=== PATIENT | male | born 1960 | race Caucasian/White ===

== ENCOUNTER 2017-01-30 21:42 | Emergency (ER) | payer BC ==
[2017-01-30 21:43] VITALS: BMI 31.9
[2017-01-30 22:11] VITALS: BP 183/97; PULSE 69; RESP 16; TEMP 98.6; O2SAT 95
[2017-01-30] MEDS ORDERED: TDAP Vaccine 0.5 mL Syr IM ONE (22:18)
--- NOTE | 2017-01-30 22:22 | ED PDOC ---
Arrival/HPI - General Time Seen by Provider: 01/30/17 22:14 Historian: Patient - History of Present Illness Narrative History of Present Illness (Text): 01/30/17 22:18 Roger Perez is a 56 year old male who presents to the emergency department complaining of stepping on a shreyas nail on the ground about 3 hours ago. Patient states his last tetanus shot was many years ago. Patient denies any fever, chills, chest pain, shortness of breath, nausea, vomiting, diarrhea, urinary symptoms, back pain, neck pain, headache, dizziness, trauma/injury, suicidal/homicidal ideation or any other complaints. Time/Duration: 1-3 hours Symptom Onset: Sudden Symptom Course: Improving Activities at Onset: Light Context: Home Past Medical History - Provider Review Nursing Documentation Reviewed: Yes - Cardiac Hx Cardiac Disorders: Yes Hx Hypertension: Yes - Pulmonary Hx Respiratory Disorders: No - Neurological Hx Neurological Disorder: No - HEENT Hx HEENT Disorder: No - Renal Hx Renal Disorder: No - Endocrine/Metabolic Hx Endocrine Disorders: Yes Hx Diabetes Mellitus Type 2: Yes - Hematological/Oncological Hx Blood Disorders: No - Integumentary Hx Dermatological Disorder: No - Musculoskeletal/Rheumatological Hx Musculoskeletal Disorders: Yes Hx Fractures: Yes (lumbar fx) - Gastrointestinal Hx Gastrointestinal Disorders: No - Genitourinary/Gynecological Hx Genitourinary Disorders: No - Psychiatric Hx Psychophysiologic Disorder: No Hx Substance Use: No - Surgical History Hx Cardiac Catheterization: Yes Hx Tonsillectomy: Yes - Anesthesia Hx Anesthesia Reactions: No - Suicidal Assessment Feels Threatened In Home Enviroment: No Family/Social History - Physician Review Nursing Documentation Reviewed: Yes Family/Social History: No Known Family HX Smoking Status: Never Smoked Hx Alcohol Use: No Hx Substance Use: No Allergies/Home Meds Allergies/Adverse Reactions: Allergies No Known Allergies Allergy (Verified 05/01/14 10:54) Home Medications: Home Meds Medication Instructions Recorded Confirmed Losartan [Cozaar] 50 mg PO DAILY 04/01/15 01/30/17 Aspirin [Lo-Dose Aspirin EC] 81 mg PO DAILY 01/12/17 01/30/17 MetFORMIN [glucoPHAGE] 1,000 mg PO BID 01/12/17 01/30/17 Review of Systems - Physician Review All systems were reviewed & negative as marked: Yes - Review of Systems Constitutional: absent: Fevers, Night Sweats Eyes: absent: Vision Changes ENT: absent: Hearing Changes Respiratory: absent: SOB Cardiovascular: absent: Chest Pain Gastrointestinal: absent: Abdominal Pain Genitourinary Male: absent: Dysuria Musculoskeletal: absent: Arthralgias Skin: Other (Nail Puncture to bottom of left foot) Neurological: absent: Headache Endocrine: absent: Diaphoresis Hemo/Lymphatic: absent: Adenopathy Psychiatric: absent: Depression Physical Exam Vital Signs Temp Pulse Resp BP Pulse Ox 01/30/17 22:11 98.6 F 69 16 183/97 H 95 Temperature: Afebrile Blood Pressure: Hypertensive Pulse: Regular Respiratory Rate: Normal Appearance: Positive for: Well-Appearing, Non-Toxic, Comfortable Pain Distress: None Mental Status: Positive for: Alert and Oriented X 3 - Systems Exam Head: Present: Atraumatic, Normocephalic Pupils: Present: PERRL Extroacular Muscles: Present: EOMI Conjunctiva: Present: Normal Mouth: Present: Moist Mucous Membranes Neck: Present: Normal Range of Motion Respiratory/Chest: Present: Clear to Auscultation, Good Air Exchange. No: Respiratory Distress, Accessory Muscle Use Cardiovascular: Present: Regular Rate and Rhythm, Normal S1, S2. No: Murmurs Abdomen: Present: Normal Bowel Sounds. No: Tenderness, Distention, Peritoneal Signs Back: Present: Normal Inspection Upper Extremity: Present: Normal Inspection. No: Cyanosis, Edema Lower Extremity: Present: Neurovascularly Intact, Other (small puncture to planter surface of left foot; no palpable foreign body or discharge; no swelling noted/minimal erythema at puncture site ) Neurological: Present: GCS=15, CN II-XII Intact, Speech Normal Skin: Present: Warm, Dry, Normal Color. No: Rashes Psychiatric: Present: Alert, Oriented x 3, Normal Insight, Normal Concentration Medical Decision Making ED Course and Treatment: 01/30/17 22:24 Impression: 56 year old male complaining of stepping on a shreyas nail about 3 hours ago. Differential Diagnosis included but are not limited to: Puncture wound Plan: -- Left foot x-ray -- Keflex and Boostrix Vaccine -- Reassess and disposition Prior Visits: Notes and results from previous visits were reviewed. Patient last seen in the ED on 04/01/15 for 9 day duration of midsternal chest pain. Patient was admitted to hospitalist care for further evaluation. Progress Notes: 01/30/17 22:26 Patient's wound was cleansed with saline and Bacitracin applied. - RAD Interpretation Narrative RAD Interpretations (Text): 01/30/17 22:45 left Foot- no acute process Radiology Orders: 01/30/17 22:17 FOOT LEFT 3 VIEWS ROUTINE [RAD] Stat Car Mechanic: ED Physician - Medication Orders Current Medication Orders: Ibuprofen (Motrin Tab) 600 mg PO STAT STA Stop: 01/30/17 22:52 Discontinued Medications Cephalexin Monohydrate (Keflex) 500 mg PO ONCE STA PRN Reason: Protocol Stop: 01/30/17 22:18 Tetanus/Reduced Diphtheria/Acell Pertussis (Boostrix Vaccine Inj) 0.5 ml IM .ONCE ONE Stop: 01/30/17 22:19 - Scribe Statement The provider has reviewed the documentation as recorded by the Cabreraibchely Louis Provider Scribe Attestation: All medical record entries made by the Scribe were at my direction and personally dictated by me. I have reviewed the chart and agree that the record accurately reflects my personal performance of the history, physical exam, medical decision making, and the department course for this patient. I have also personally directed, reviewed, and agree with the discharge instructions and disposition. Disposition/Present on Arrival - Present on Arrival Any Indicators Present on Arrival: No History of DVT/PE: No History of Uncontrolled Diabetes: No Urinary Catheter: No History Surgical Site Infection Following: None - Disposition Have Diagnosis and Disposition been Completed?: Yes Diagnosis: Puncture wound of left foot Disposition: HOME/ ROUTINE Disposition Time: 22:47 Patient Plan: Discharge Patient Problems: Current Active Problems Problem Status Onset Puncture wound of left foot Acute Condition: GOOD Discharge Instructions (ExitCare): Puncture Wound (ED) Additional Instructions: Keep wound clean and dry/take meds as prescribed/follow up with your doctor this week/any signs of infection(wound discharge/swelling/increasing redness/ warmth/fever)return to the emergency room Prescriptions: Cephalexin [cephalexin] 500 mg PO BID #14 cap Referrals: Jennifer Darby MD [Primary Care Provider] - Follow up with primary
--- NOTE | 2017-01-31 10:46 | RAD ---
PROCEDURE: Left Foot Radiographs. HISTORY: stepped on a nail COMPARISON: None. FINDINGS: BONES: Normal. No fracture. JOINTS: Normal. SOFT TISSUES: Normal. OTHER FINDINGS: None. IMPRESSION: Normal left foot radiographs.
== END 2017-01-30 23:19 | disposition home or self-care (01) ==
LOC: ED 21:42
DX: S91.332A Puncture wound without foreign body, left foot, initial encounter (principal); W45.0XXA Nail entering through skin, initial encounter; E11.9 Type 2 diabetes mellitus without complications; I10 Essential (primary) hypertension; Z79.84 Long term (current) use of oral hypoglycemic drugs; Z79.82 Long term (current) use of aspirin; Z23 Encounter for immunization

== ENCOUNTER 2017-03-05 14:43 | Observation (INO) | payer BC ==
[2017-03-05 14:43] VITALS: BMI 31.9
[2017-03-05 16:14] LABS: URINE BILIRUBIN NEGATIVE (NEGATIVE); URINE BLOOD NEGATIVE (NEGATIVE); URINE GLUCOSE (UA) NEGATIVE (NEGATIVE); URINE KETONE TRACE mg/dL (NEGATIVE); URINE LEUKOCYTE ESTERASE NEGATIVE Leu/uL (NEGATIVE); URINE PROTEIN 30 mg/dL (<30 mg/dL); URINE UROBILINOGEN 0.2 E.U./dL (<1 E.U./dL)
[2017-03-05 16:18] LABS: URINE APPEARANCE CLEAR (CLEAR); URINE COLOR YELLOW (YELLOW)
[2017-03-05 16:19] LABS: URINE WBC 0 - 2 /hpf (0-6)
[2017-03-05 16:41] LABS: BASO # 0.12 K/mm3 (0.0-2.0); BASO % 1.6 % (0.0-3.0); EOS # 0.4 (0.0-0.7); EOS % 5.4 % (1.5-5.0); GRAN # 4.25 (1.4-6.5); GRAN % 56.5 % (50.0-68.0); HEMATOCRIT 41.6 % (42.0-52.0); LYMPH % 26.8 % (22.0-35.0); MEAN CELL VOLUME 87.9 fl (80.0-105.0); MEAN CORPUSCULAR HEMOGLOBIN 30.2 pg (25.0-35.0); MEAN CORPUSCULAR HGB CONC 34.4 g/dl (31.0-37.0); MEAN PLATELET VOLUME 11.2 fl (7.0-11.0); MONO # 0.7 (0.1-0.6); MONO % 9.7 % (1.0-6.0); RED CELL DISTRIBUTION WIDTH 12.9 % (11.5-14.5); WHITE BLOOD COUNT 7.5 10^3/ul (4.5-11.0)
--- NOTE | 2017-03-05 16:42 | ED PDOC ---
Arrival/HPI - General Chief Complaint: Chest Pain Time Seen by Provider: 03/05/17 15:20 Historian: Patient, Family - History of Present Illness Narrative History of Present Illness (Text): 03/05/17 16:31 Patient is a 57 yo male past medical history of diabetes, hypertension, presents to the ED stating that he has had intermittent chest pain for "past three days" "on and off" "while I was sitting". He also reports intermittent MILD left sided headache. Denies chest pain with exertion. Denies dsypnea with exertion. Denies numbness or weakness. Denies leg pain or swelling. Denies hemoptysis. Denies pleuritic pain. He does report that he "has been eating a little too much" for Thanksgiving but has been compliant with his medication. Denies neck pain or arm pain or back pain. Denies diaphoresis. Past Medical History - Cardiac Hx Cardiac Disorders: Yes Hx Hypertension: Yes - Pulmonary Hx Respiratory Disorders: No - Neurological Hx Neurological Disorder: No - HEENT Hx HEENT Disorder: No - Renal Hx Renal Disorder: No - Endocrine/Metabolic Hx Endocrine Disorders: Yes Hx Diabetes Mellitus Type 2: Yes - Hematological/Oncological Hx Blood Disorders: No - Integumentary Hx Dermatological Disorder: No - Musculoskeletal/Rheumatological Hx Musculoskeletal Disorders: Yes Hx Fractures: Yes (lumbar fx) - Gastrointestinal Hx Gastrointestinal Disorders: No - Genitourinary/Gynecological Hx Genitourinary Disorders: No - Psychiatric Hx Psychophysiologic Disorder: No Hx Substance Use: No - Surgical History Hx Cardiac Catheterization: Yes Hx Tonsillectomy: Yes - Anesthesia Hx Anesthesia Reactions: No - Suicidal Assessment Feels Threatened In Home Enviroment: No Family/Social History Family/Social History: CAD/NH Smoking Status: Never Smoked Hx Alcohol Use: No Hx Substance Use: No Allergies/Home Meds Allergies/Adverse Reactions: Allergies No Known Allergies Allergy (Verified 03/05/17 14:49) Home Medications: Home Meds Medication Instructions Recorded Confirmed Losartan [Cozaar] 50 mg PO DAILY 04/01/15 03/05/17 Aspirin [Lo-Dose Aspirin EC] 81 mg PO DAILY 01/12/17 03/05/17 MetFORMIN [glucoPHAGE] 1,000 mg PO BID 01/12/17 03/05/17 Review of Systems - Review of Systems Constitutional: Fatigue. absent: Fevers Eyes: absent: Vision Changes, Eye Pain ENT: absent: Hearing Changes Respiratory: absent: SOB, Cough, Sputum Cardiovascular: Chest Pain Gastrointestinal: absent: Abdominal Pain, Nausea, Vomiting Genitourinary Male: absent: Dysuria Musculoskeletal: absent: Back Pain Skin: absent: Rash Neurological: Headache, Dizziness. absent: Focal Weakness, Gait Changes Endocrine: absent: Diaphoresis, Polyuria, Polydipsia Hemo/Lymphatic: absent: Easy Bleeding Psychiatric: absent: Depression Physical Exam Vital Signs Reviewed: Yes Vital Signs Temp Pulse Resp BP Pulse Ox 03/05/17 18:14 54 L 18 188/92 H 97 03/05/17 16:44 60 17 173/87 H 98 03/05/17 16:07 69 170/95 H 03/05/17 14:48 97.4 F L 73 16 194/107 H 98 Temperature: Afebrile Blood Pressure: Hypertensive Appearance: Positive for: Well-Appearing Pain Distress: Mild Mental Status: Positive for: Alert and Oriented X 3 Finger Stick Blood Glucose: 123 - Systems Exam Head: Present: Atraumatic Pupils: Present: PERRL Extroacular Muscles: Present: EOMI Mouth: Present: Moist Mucous Membranes Pharnyx: No: ERYTHEMA Nose (Internal): Present: Normal Inspection Neck: Present: Normal Range of Motion. No: Meningeal Signs Respiratory/Chest: Present: Clear to Auscultation. No: Respiratory Distress Cardiovascular: Present: Regular Rate and Rhythm, Murmurs Abdomen: Present: Normal Bowel Sounds. No: Tenderness, Peritoneal Signs Back: No: CVA Tenderness Upper Extremity: No: Cyanosis Lower Extremity: No: Edema Neurological: Present: Motor Func Grossly Intact, Normal Sensory Function, Normal Cerebellar Funct Skin: Present: Warm Psychiatric: Present: Alert, Normal Insight, Normal Concentration Medical Decision Making ED Course and Treatment: 03/05/17 17:20 Patient is a 57 yo male presents with intermittent chest pain, "at rest", as well as headache over past several days. Currently in ED he denies chest pain. EKG with no acute changes when compared to prior EKG. He is hypertensive, states he has been taking his BP meds but possibly with noncompliance with diet recently. On examination, no focal neuro deficits. Not thunderclap headache, not worst in life. No fever. No neck pain, no meningeal signs. CT head unremarkable. On re-exam the patient denies chest pain. He has had stress test earlier this year through Dr. Simon which was reportedly unremarkable. Last cardiac cath noted was 2014, and was reviewed. He has family hx of CAD (father). Patient, given risk factors for heart disease, will be admitted to telemetry observation for chest pain evaluation, BP management. Will review with oncall physician, consult his binder caser Dr. Simon as well. ASA and beta abdirashid ordered. Continue to deny chest pain or sob while in ED. Oral potassium replacement ordered. Treatment plan reviewed with patient and family. Case discussed with Dr. Scott, on-call physician, who accepts admission, case also reviewed with Dr. Glover as well. - Lab Interpretations Lab Results: 03/05/17 16:25 03/05/17 16:25 Lab Results 03/05/17 16:25: Sodium 140, Potassium 3.2 L, Chloride 100, Carbon Dioxide 31, Anion Gap 12, BUN 17, Creatinine 1.0, Est GFR ( Amer) > 60, Est GFR (Non- Af Amer) > 60, Random Glucose 123 H, Calcium 9.3, Magnesium 1.7, Total Bilirubin 0.6, AST 21, ALT 36, Alkaline Phosphatase 61, Lactate Dehydrogenase 331 L, Total Creatine Kinase 62, Troponin I 0.01 D, NT-Pro-B Natriuret Pep 239 , Total Protein 7.3, Albumin 4.0, Globulin 3.2, Albumin/Globulin Ratio 1.3 03/05/17 16:25: PT 10.9, INR 1.00, APTT 30.2 03/05/17 16:25: WBC 7.5 D, RBC 4.73, Hgb 14.3, Hct 41.6 L, MCV 87.9, MCH 30.2, MCHC 34.4, RDW 12.9, Plt Count 185, MPV 11.2 H, Gran % 56.5, Lymph % (Auto) 26.8 , [place] % (Auto) 9.7 H, Eos % (Auto) 5.4 H, Baso % (Auto) 1.6, Gran # 4.25, Lymph # 2.0, [place] # 0.7 H, Eos # 0.4, Baso # 0.12 03/05/17 15:37: Urine Color Yellow, Urine Appearance Clear, Urine pH 6.0, Ur Specific [place] 1.025, Urine Protein 30 H, Urine Glucose (UA) Negative, Urine Ketones Trace H, Urine Blood Negative, Urine Nitrate Negative, Urine Bilirubin Negative, Urine Urobilinogen 0.2, Ur Leukocyte Esterase Negative, Urine RBC 0 - 2, Urine WBC 0 - 2, Ur Epithelial Cells 0 - 2, Amorphous Sediment Transformation Manager - RAD Interpretation Radiology Orders: 03/05/17 15:32 HEAD W/O CONTRAST [CT] Stat 03/05/17 15:33 CHEST PORTABLE [RAD] Stat - Medication Orders Current Medication Orders: Aspirin (Ecotrin) 81 mg PO DAILY ELIAS Insulin Human Regular (Humulin R Low) 0 units SC ACHS ELIAS PRN Reason: Protocol Losartan Potassium (Cozaar) 50 mg PO DAILY ELIAS Discontinued Medications Acetaminophen (Tylenol 325mg Tab) 650 mg PO ONCE STA Stop: 03/05/17 17:53 Last Admin: 03/05/17 18:04 Dose: 650 mg Aspirin (Aspirin Chewable) 81 mg PO STAT STA Stop: 03/05/17 15:48 Last Admin: 03/05/17 15:57 Dose: 81 mg Metoprolol Tartrate (Lopressor) 25 mg PO STAT STA Stop: 03/05/17 15:59 Last Admin: 03/05/17 16:07 Dose: 25 mg MAR Pulse and Blood Pressure Document 03/05/17 16:07 (Rec: 03/05/17 16:07 [id number]) Pulse Pulse Rate (60-90) 69 Blood Pressure Blood Pressure (100/60-150/90) 170/95 Nitroglycerin (Nitro-Bid 2% Oint) 1 ea TOP ONCE STA Stop: 03/05/17 17:53 Last Admin: 03/05/17 18:04 Dose: 1 ea Potassium Chloride (K-Dur 20 Meq Er Tab) 40 meq PO STAT STA Stop: 03/05/17 16:48 Last Admin: 03/05/17 17:46 Dose: 40 meq Disposition/Present on Arrival - Present on Arrival Any Indicators Present on Arrival: No History of DVT/PE: No History of Uncontrolled Diabetes: No Urinary Catheter: No History of Decub. Ulcer: No History Surgical Site Infection Following: None - Disposition Have Diagnosis and Disposition been Completed?: Yes Diagnosis: Chest pain, Headache, Hypertension Disposition: HOSPITALIZED Disposition Time: 17:24 Patient Plan: Admission, Observation, Telemetry Patient Problems: Current Active Problems Problem Status Onset Chest pain Acute Headache Acute Hypertension Acute Condition: FAIR
[2017-03-05 16:45] LABS: ALB/GLOB RATIO 1.3 (1.1-1.8); ALKALINE PHOSPHATASE 61 U/L (38-126); ALT/SGPT 36 U/L (7-56); AST/SGOT 21 U/L (17-59); BILIRUBIN,TOTAL 0.6 mg/dL (0.2-1.3); BLOOD UREA NITROGEN 17 mg/dL (7-21); CALCIUM 9.3 mg/dL (8.4-10.5); CARBON DIOXIDE 31 mmol/L (21-33); CHLORIDE 100 mmol/L (98-107); GFR AFRICAN-AMERICAN > 60; GLUCOSE,RANDOM 123 mg/dL (70-110); MAGNESIUM 1.7 mg/dL (1.7-2.2); PARTIAL THROMBOPLASTIN TIME 30.2 Seconds (25.1-36.5); POTASSIUM 3.2 mmol/L (3.6-5.0); SODIUM 140 mmol/L (132-148); TOTAL PROTEIN 7.3 g/dL (5.8-8.3)
[2017-03-05] MEDS ORDERED: Potassium Chloride 20 mEq ER Tab PO STA (16:47)
--- NOTE | 2017-03-05 16:57 | CT ---
PROCEDURE: CT HEAD WITHOUT CONTRAST. HISTORY: headache, hypertension COMPARISON: None available. TECHNIQUE: Axial computed tomography images were obtained through the head/brain without intravenous contrast. Radiation dose: Total exam DLP = 726 mGy-cm. This CT exam was performed using one or more of the following dose reduction techniques: Automated exposure control, adjustment of the mA and/or kV according to patient size, and/or use of iterative reconstruction technique. FINDINGS: HEMORRHAGE: No intracranial hemorrhage. BRAIN: No mass effect or edema. No atrophy or chronic microvascular ischemic changes. VENTRICLES: Unremarkable. No hydrocephalus. CALVARIUM: Unremarkable. PARANASAL SINUSES: Unremarkable as visualized. No significant inflammatory changes. MASTOID AIR CELLS: Unremarkable as visualized. No inflammatory changes. OTHER FINDINGS: None. IMPRESSION: No acute intracranial findings
[2017-03-05 17:00] LABS: URINE EPITHELIAL CELLS 0 - 2 /hpf (0-5)
--- NOTE | 2017-03-05 17:03 | RAD ---
HISTORY: chest pain COMPARISON: No prior. FINDINGS: LUNGS: No active pulmonary disease. PLEURA: No significant pleural effusion identified, no pneumothorax apparent. CARDIOVASCULAR: Mild cardiomegaly OSSEOUS STRUCTURES: No significant abnormalities. VISUALIZED UPPER ABDOMEN: Normal. OTHER FINDINGS: None. IMPRESSION: No active disease.
[2017-03-05 17:05] LABS: URINE RBC 0 - 2 /hpf (0-2)
[2017-03-05 17:07] LABS: TROPONIN I 0.01 ng/mL
[2017-03-05] MEDS ORDERED: Nitroglycerin 2% Ointment Foilpak UD TOP STA (17:52)
[2017-03-05 20:02] LABS: TROPONIN I 0.01 ng/mL
--- NOTE | 2017-03-05 20:46 | CP.PCM.HP ---
History of Present Illness - History of Present Illness History of Present Illness: (covering for Dr. Scott) 57 year old male with history of hypertension, and diabetes presents to the Emergency Room with chest pain on and off for the past 3 days. He denies shortness of breath, nausea, diaphoresis , or leg swelling. He says the pain comes and goes. His energy sales consultant is Dr. Simon and according to the patient , he had a stress test earlier this year which was negative. Present on Admission - Present on Admission Any Indicators Present on Admission: No History of DVT/PE: No History of Uncontrolled Diabetes: No Urinary Catheter: No Decubitus Ulcer Present: No Review of Systems - Constitutional Constitutional: absent: Chills, Fatigue, Fever - Cardiovascular Cardiovascular: As Per HPI - Respiratory Respiratory: absent: Cough, Dyspnea, Wheezing - Gastrointestinal Gastrointestinal: absent: Abdominal Pain, Nausea, Vomiting Past Patient History - Past Medical History & Family History Past Medical History?: Yes - Past Social History Smoking Status: Never Smoked - CARDIAC Hx Cardiac Disorders: Yes Hx Hypertension: Yes - PULMONARY Hx Respiratory Disorders: No - NEUROLOGICAL Hx Neurological Disorder: No - HEENT Hx HEENT Problems: No - RENAL Hx Chronic Kidney Disease: No - ENDOCRINE/METABOLIC Hx Endocrine Disorders: Yes Hx Diabetes Mellitus Type 2: Yes - HEMATOLOGICAL/ONCOLOGICAL Hx Blood Disorders: No - INTEGUMENTARY Hx Dermatological Problems: No - MUSCULOSKELETAL/RHEUMATOLOGICAL Hx Musculoskeletal Disorders: Yes Hx Fractures: Yes (lumbar fx) - GASTROINTESTINAL Hx Gastrointestinal Disorders: No - GENITOURINARY/GYNECOLOGICAL Hx Genitourinary Disorders: No - PSYCHIATRIC Hx Psychophysiologic Disorder: No Hx Substance Use: No - SURGICAL HISTORY Hx Cardiac Catheterization: Yes Hx Tonsillectomy: Yes - ANESTHESIA Hx Anesthesia Reactions: No Meds Allergies/Adverse Reactions: Allergies Allergy/AdvReac Type Severity Reaction Status Date / Time No Known Allergies Allergy Verified 03/05/17 14:49 Physical Exam - Constitutional Appears: No Acute Distress - Head Exam Head Exam: ATRAUMATIC, NORMOCEPHALIC - Respiratory Exam Respiratory Exam: Clear to Auscultation Bilateral, NORMAL BREATHING PATTERN - Cardiovascular Exam Cardiovascular Exam: +S1, +S2 - GI/Abdominal Exam GI & Abdominal Exam: Normal Bowel Sounds, Soft. absent: Tenderness - Extremities Exam Extremities exam: Positive for: normal inspection Results - Vital Signs Recent Vital Signs: Last Vital Signs Temp 97.4 F L 03/05/17 14:48 Pulse 66 03/05/17 18:40 Resp 18 03/05/17 18:40 BP 175/95 H 03/05/17 18:40 Pulse Ox 98 03/05/17 18:40 - Labs Result Diagrams: 03/05/17 16:25 03/05/17 16:25 Labs: Laboratory Results - last 24 hr 03/05/17 03/05/17 18:29 19:30 POC Glucose (mg/dL) 122 H Lactate Dehydrogenase 315 L Total Creatine Kinase 54 Troponin I 0.01 Assessment & Plan - Assessment and Plan (Free Text) Assessment: Chest pain HTN Diabetes Hypokalemia Plan: Patient complaining of intermittent chest pain. Patient will be evaluated by Dr. Simon, who is his energy sales consultant. Cardiac enzymes and troponin X 3 has been ordered. continue ASA and Losartan for blood pressure. We will hold the metformin in case patient needs to undergo catheterization. We will order accuchecks with sliding scale coverage. Low potassium has been replaced. Repeat electrolytes in AM.
[2017-03-05] MEDS: Insulin Reg-LOW-Coverage SC SCH (22:17)
[2017-03-05] MEDS ORDERED: Pneumococcal 23-Valent Vaccine IM ONE (22:41)
[2017-03-05] MEDS ORDERED: Influenza Vaccine 60 mcg/0.5 mL SYR (4YR UP) IM ONE (22:41)
[2017-03-06 07:15] LABS: BASO # 0.15 K/mm3 (0.0-2.0); BASO % 1.9 % (0.0-3.0); EOS # 0.5 (0.0-0.7); EOS % 6.3 % (1.5-5.0); GRAN # 4.19 (1.4-6.5); GRAN % 53.4 % (50.0-68.0); HEMATOCRIT 42.5 % (42.0-52.0); LYMPH # 2.2 (1.2-3.4); LYMPH % 28.6 % (22.0-35.0); MEAN CELL VOLUME 88.4 fl (80.0-105.0); MEAN CORPUSCULAR HEMOGLOBIN 29.7 pg (25.0-35.0); MEAN CORPUSCULAR HGB CONC 33.6 g/dl (31.0-37.0); MEAN PLATELET VOLUME 11.9 fl (7.0-11.0); MONO # 0.8 (0.1-0.6); MONO % 9.8 % (1.0-6.0); RED CELL DISTRIBUTION WIDTH 13.2 % (11.5-14.5); WHITE BLOOD COUNT 7.8 10^3/ul (4.5-11.0)
[2017-03-06 07:52] LABS: BLOOD UREA NITROGEN 15 mg/dL (7-21); CALCIUM 8.9 mg/dL (8.4-10.5); CARBON DIOXIDE 30 mmol/L (21-33); CHLORIDE 103 mmol/L (98-107); GFR AFRICAN-AMERICAN > 60; GLUCOSE,RANDOM 132 mg/dL (70-110); POTASSIUM 3.3 mmol/L (3.6-5.0); SODIUM 141 mmol/L (132-148)
[2017-03-06] MEDS ORDERED: Potassium Chloride 20 mEq ER Tab PO ONE (08:26)
[2017-03-06] MEDS ORDERED: Apap-Butalbital-Caffeine 325-50-40mg Tab PO PRN (08:32)
--- NOTE | 2017-03-06 08:32 | CP.PCM.PN ---
Subjective - Date & Time of Evaluation Date of Evaluation: 03/06/17 Time of Evaluation: 08:15 - Subjective Subjective: (covering for Dr. Scott) Patient is seen this morning. He denies chest pain this morning. He does complain of a mild headache. Objective - Vital Signs/Intake and Output Vital Signs (last 24 hours): Temp Pulse Resp BP Pulse Ox 98.1 F 51 L 20 158/79 H 95 03/06/17 06:00 03/06/17 06:00 03/06/17 06:00 03/06/17 06:40 03/06/17 06:00 Intake and Output: 03/06/17 03/06/17 06:59 18:59 Intake Total 120 Balance 120 - Medications Medications: Current Medications Aspirin (Ecotrin) 81 mg PO DAILY [facility] Insulin Human Regular (Humulin R Low) 0 units SC ACHS EL[facility] PRN Reason: Protocol Last Admin: 03/05/17 22:17 Dose: Not Given Losartan Potassium (Cozaar) 50 mg PO DAILY [facility] - Labs Labs: 03/06/17 07:04 03/06/17 07:04 PT 10.9 SECONDS (9.4-12.5) 03/05/17 16:25 INR 1.00 (0.93-1.08) 03/05/17 16:25 APTT 30.2 Seconds (25.1-36.5) 03/05/17 16:25 - Constitutional Appears: No Acute Distress - Head Exam Head Exam: ATRAUMATIC, NORMOCEPHALIC - Respiratory Exam Respiratory Exam: Clear to Ausculation Bilateral, NORMAL BREATHING PATTERN - Cardiovascular Exam Cardiovascular Exam: +S1, +S2 - GI/Abdominal Exam GI & Abdominal Exam: Soft, Normal Bowel Sounds. absent: Tenderness - Extremities Exam Extremities Exam: Normal Inspection - Neurological Exam Neurological Exam: Alert, Awake, Oriented x3 Assessment and Plan - Assessment and Plan (Free Text) Assessment: Chest pain r/o ACS HTN Headache Hypokalemia Plan: Patient is feeling better this morning. He denies chest pain. He says he had cardiac catheterization by Dr. Simon 2 years ago. continue ASA, Losartan. Patient not on beta-abdirashid secondary to bradycardia. Awaiting cardiac evaluation. Metformin is held in case patient needs cardiac catheterization. 2 sets of cardiac enzymes and troponin negative. continue accuchecks with SS coverage. We will order Fioricet for the headache.
--- NOTE | 2017-03-06 09:01 | CARD ---
APPROVED REPORT EKG Measurement Heart [id number] <Conclusion> Normal sinus rhythm Left axis deviation PRWP V 1 - 6. Possible anterior AR, old STTW changes c/w ischemia T waves now upright c/w ECG 04/01/15
[2017-03-06] MEDS: Insulin Reg-LOW-Coverage SC SCH ×4 (09:52→22:06)
[2017-03-06 14:22] LABS: CHOLESTEROL 151 mg/dL (130-200)
[2017-03-06 14:44] LABS: FREE T4 1.27 ng/dL (0.78-2.19); T4 8.1 ug/dL (5.5-11.0)
[2017-03-06 14:57] LABS: PROSTATE SPECIFIC ANTIGEN 1.1 ng/mL (0.00-2.5); THYROID STIMULATING HORMONE 3.81 mIU/mL (0.46-4.68)
[2017-03-06] MEDS: Potassium Chloride 20 mEq ER Tab PO SCH (15:27)
--- NOTE | 2017-03-06 15:38 | RAD ---
HISTORY: CHF COMPARISON: 03/05/2017 TECHNIQUE: Chest PA and lateral FINDINGS: LUNGS: No active pulmonary disease. PLEURA: No significant pleural effusion identified. No pneumothorax apparent. CARDIOVASCULAR: Normal. OSSEOUS STRUCTURES: No significant abnormalities. VISUALIZED UPPER ABDOMEN: Normal. OTHER FINDINGS: None. IMPRESSION: No active disease.
[2017-03-06 17:49] VITALS: RESP 20
--- NOTE | 2017-03-06 21:51 | CON ---
DATE: CARDIOLOGY CONSULTATION REASON FOR CONSULTATION: Chest pain and uncontrolled hypertension. HISTORY OF PRESENT ILLNESS: The patient is a 57-year-old male with history of hypertension and diabetes mellitus, history of chest pain in the past, underwent a Myoview stress test in 09/2016, which was reported to be negative. An echocardiographic study was also performed the same day on 09/30/2016, which was unremarkable study. The patient presented because of chest discomfort and uncontrolled hypertension as well as headache. The patient claims to have been compliant with medications and he had a followup with Dr. Colt Simon this coming April. SOCIAL HISTORY: The patient is nonsmoker. 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 REVIEW OF SYSTEMS: No fever or chills. No dizziness or syncope. The patient did report blurry vision to the nurse earlier this morning. MEDICATIONS: Cozaar 50 mg daily, aspirin 81 mg once a day, regular insulin coverage by Accu-Chek hours. PHYSICAL EXAMINATION: GENERAL: The patient is a middle-aged male, who is moderately obese, does not appear to be in acute distress. VITAL SIGNS: Blood pressure 116/104, heart rate 54, temperature 98, respirations 18. HEENT: Normocephalic. CHEST: Clear. HEART: S1 and S2 regular. ABDOMEN: Soft. EXTREMITIES: No edema. LABORATORY DATA: CBC; WBC 7.8, hemoglobin 14.3, hematocrit 42.5 and platelet count 196,000. SMA-7; sodium 141, potassium 3.3, chloride 103, CO2 of 30, glucose 132, BUN 15, creatinine 0.9. Troponin is 0.01. PTT, PT and INR are within normal limits. Chest x-ray; borderline cardiomegaly, mild CHF. Head CT scan without contrast; no acute intracranial findings. EKG reveals sinus rhythm. Poor R wave progression. Consider lateral ischemia. ASSESSMENT: 1. Chest pain, rule out myocardial infarction. 2. Uncontrolled hypertension. 3. Diabetes mellitus. RECOMMENDATIONS: Continue aspirin 81 mg once a day, Cozaar 50 mg once a day, start Coreg at 3.125 mg once a day, Lasix 40 mg intravenously daily with K-Dur at 40 mEq daily. Start Lipitor at 20 mg once a day. Obtain repeat 12-lead EKG and one more set of troponin. Chet Charlton MD Psychiatric # [id number]
[2017-03-07 06:06] VITALS: TEMP 98; O2SAT 96
[2017-03-07 06:46] LABS: BASO # 0.09 K/mm3 (0.0-2.0); BASO % 1.2 % (0.0-3.0); EOS # 0.4 (0.0-0.7); GRAN # 3.76 (1.4-6.5); GRAN % 51.7 % (50.0-68.0); LYMPH # 2.3 (1.2-3.4); LYMPH % 31.9 % (22.0-35.0); MEAN CELL VOLUME 88.9 fl (80.0-105.0); MEAN CORPUSCULAR HEMOGLOBIN 30.5 pg (25.0-35.0); MEAN CORPUSCULAR HGB CONC 34.3 g/dl (31.0-37.0); MONO # 0.7 (0.1-0.6); MONO % 9.2 % (1.0-6.0); RED CELL DISTRIBUTION WIDTH 13.3 % (11.5-14.5); WHITE BLOOD COUNT 7.3 10^3/ul (4.5-11.0)
[2017-03-07 06:47] LABS: ALB/GLOB RATIO 1.1 (1.1-1.8); ALKALINE PHOSPHATASE 64 U/L (38-126); ALT/SGPT 35 U/L (7-56); AST/SGOT 23 U/L (17-59); BILIRUBIN,DIRECT 0.5 mg/dL (0.0-0.4); BILIRUBIN,TOTAL 0.8 mg/dL (0.2-1.3); BLOOD UREA NITROGEN 19 mg/dL (7-21); CALCIUM 9.4 mg/dL (8.4-10.5); CARBON DIOXIDE 29 mmol/L (21-33); CHLORIDE 105 mmol/L (98-107); GFR AFRICAN-AMERICAN > 60; GLUCOSE,RANDOM 126 mg/dL (70-110); POTASSIUM 3.5 mmol/L (3.6-5.0); SODIUM 141 mmol/L (132-148); TOTAL PROTEIN 7.6 g/dL (5.8-8.3)
[2017-03-07] MEDS: Insulin Reg-LOW-Coverage SC SCH ×3 (07:39→17:52)
[2017-03-07] MEDS ORDERED: Ergocalciferol 50,000 Intl Units Cap PO SCH (09:00)
--- NOTE | 2017-03-07 09:08 | CP.PCM.PN ---
Subjective - Date & Time of Evaluation Date of Evaluation: 03/07/17 Time of Evaluation: 09:05 - Subjective Subjective: PGY-[address] Scott Pt states that no more CP during the hospital stay here. BP is the main complaint and that's what brings pt down. (+) ambulation, tolerating food. PURDY was controlled by meds and improves as BP improves Objective - Vital Signs/Intake and Output Vital Signs (last 24 hours): Temp Pulse Resp BP Pulse Ox 98 F 67 20 164/103 H 96 03/07/17 06:00 03/07/17 06:00 03/07/17 06:00 03/07/17 05:56 03/07/17 06:00 Intake and Output: 03/07/17 03/07/17 06:59 18:59 Intake Total 180 Output Total 0 Balance 180 - Medications Medications: Current Medications Acetaminophen/Butalbital/Caffeine (Fioricet) 1 tab PO Q6H PRN PRN Reason: Headache Last Admin: 03/06/17 09:51 Dose: 1 tab Aspirin (Ecotrin) 81 mg PO DAILY [facility] Last Admin: 03/06/17 09:51 Dose: 81 mg Atorvastatin Calcium (Lipitor) 20 mg PO DIN [facility] Last Admin: 03/06/17 17:23 Dose: 20 mg Carvedilol (Coreg) 3.125 mg PO BID [facility] Last Admin: 03/06/17 17:23 Dose: 3.125 mg Ergocalciferol (Drisdol 50,000 Intl Units Cap) 1 cap PO Q7D [facility] Furosemide (Lasix) 40 mg IVP DAILY [facility] Last Admin: 03/06/17 13:35 Dose: 40 mg Hydralazine HCl (Apresoline) 10 mg PO Q6H PRN PRN Reason: FOR SBP>=170MMHG&/OR DBP>=100 Last Admin: 03/07/17 05:56 Dose: 10 mg Hydrochlorothiazide (Microzide) 12.5 mg PO DAILY [facility] Insulin Human Regular (Humulin R Low) 0 units SC ACHS [facility] PRN Reason: Protocol Last Admin: 03/07/17 07:39 Dose: Not Given Losartan Potassium (Cozaar) 100 mg PO DAILY [facility] Last Admin: 03/06/17 15:27 Dose: 100 mg Potassium Chloride (K-Dur 20 Meq Er Tab) 40 meq PO DAILY [facility] Last Admin: 03/06/17 15:27 Dose: 40 meq Potassium Chloride (Potassium Chloride Oral Soln) 40 meq PO Q1H [facility] Stop: 03/07/17 10:01 - Labs Labs: 03/07/17 05:30 03/07/17 05:30 PT 10.9 SECONDS (9.4-12.5) 03/05/17 16:25 INR 1.00 (0.93-1.08) 03/05/17 16:25 APTT 30.2 Seconds (25.1-36.5) 03/05/17 16:25 - Constitutional Appears: No Acute Distress - Head Exam Head Exam: ATRAUMATIC, NORMAL INSPECTION, NORMOCEPHALIC - Eye Exam Eye Exam: EOMI, Normal appearance, PERRL. absent: Scleral icterus Pupil Exam: NORMAL ACCOMODATION - ENT Exam ENT Exam: Mucous Membranes Moist - Neck Exam Additional comments: supple - Respiratory Exam Respiratory Exam: Clear to Ausculation Bilateral. absent: Rales, Rhonchi, Wheezes - Cardiovascular Exam Cardiovascular Exam: REGULAR RHYTHM, +S1, +S2 - GI/Abdominal Exam GI & Abdominal Exam: Soft, Normal Bowel Sounds. absent: Firm, Guarding, Tenderness, Organomegaly - Extremities Exam Extremities Exam: absent: Calf Tenderness - Back Exam Back Exam: absent: CVA tenderness (L), CVA tenderness (R) - Neurological Exam Neurological Exam: Alert, Awake - Psychiatric Exam Psychiatric exam: Normal Affect, Normal Mood Assessment and Plan - Assessment and Plan (Free Text) Plan: 57M was admitted for CP and hypertensive urgency of 219/104. CP r/o ACS, likely atypical, resolved - Echocardiogram pending read Uncontrolled HTN, improved - Hydrochlorothiazide 25QD, Losartan 100, Coreg 3.124 BID DM, A1C 6.9 - diabetic education, diet counselging Discharge planning - pending cardiac clearance s/r/d/w Dr. Scott
[2017-03-07] MEDS: Potassium Chloride 20 mEq ER Tab PO SCH (09:35)
[2017-03-07] MEDS: Potassium Chloride 40 mEq/30 ml LIQ UD PO SCH ×2 (09:36→12:51)
--- NOTE | 2017-03-07 09:54 | CARD ---
APPROVED REPORT EKG Measurement Heart [id number] <Conclusion> Normal sinus rhythm Left axis deviation PRWP, possible anterior MD, old New ST changes V 2 - 6 c/w ischemia-Biphasic T waves V 3 - 6.
--- NOTE | 2017-03-07 14:51 | CARD ---
APPROVED REPORT EXAM: Two-dimensional and M-mode echocardiogram with Doppler and color Doppler. INDICATION Hypertension/HCVD Chest Pain 2D DIMENSIONS IVSd1.6 (0.7-1.1cm)LVDd4.6 (3.9-5.9cm) PWd1.3 (0.7-1.1cm)LVDs3.4 (2.5-4.0cm) FS (%) 26.1 %LVEF (%)51.3 (>50%) M-Mode DIMENSIONS Aortic Root4.00 (2.2-3.7cm)Aortic Cusp Exc.2.20 (1.5-2.0cm) Aortic Valve AoV Peak Yvbppwcr507.0cm/Kenneth Peak GR.4mmHg Mitral Valve MV E Edrjfjsj09.8cm/sMV A Cwrvvvgr97.0cm/sE/A ratio0.7 TDI Lateral E' Peak V7.21cm/sMedial E' Peak V3.70cm/sE/Lateral E'7.2 E/Medial E'14.0 Pulmonary Valve PV Peak Wguwppez56.0cm/sPV Peak Grad.3mmHg Tricuspid Valve TR Peak Gcllgrub674fs/sRAP [id number] Peak Gr.15mmHg IUPM11mfVp LEFT VENTRICLE The left ventricle is normal size. There is mild concentric left ventricular hypertrophy. Left ventricle systolic function is borderline. There is normal LV segmental wall motion. Transmitral Doppler flow pattern is Grade I-abnormal relaxation pattern. RIGHT VENTRICLE The right ventricle is normal size. There is normal right ventricular wall thickness. The right ventricular systolic function is normal. ATRIA The left atrium size is normal. The right atrium size is normal. AORTIC VALVE The aortic valve is normal in structure. There is trace aortic regurgitation. There is no aortic valvular stenosis. MITRAL VALVE The mitral valve is normal in structure. There is no mitral valve regurgitation noted. TRICUSPID VALVE The tricuspid valve is normal in structure. GREAT VESSELS The aortic root is mildly enlarged. PERICARDIAL EFFUSION There is no pericardial effusion. <Conclusion> The left ventricle is normal size. There is mild concentric left ventricular hypertrophy. Left ventricle systolic function is borderline. There is normal LV segmental wall motion. Transmitral Doppler flow pattern is Grade I-abnormal relaxation pattern. There is trace aortic regurgitation. The aortic root is mildly enlarged.
--- NOTE | 2017-03-07 16:05 | PN ---
FINAL PROGRESS NOTE & DISCHARGE SUMMARY DATE: 03/07/2017 LOCATION: The patient was seen lying in the bed in room 275, bed 1. SUBJECTIVE: The patient is comfortable. 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 PHYSICAL EXAMINATION: VITAL SIGNS: T-max is 98.2, heart rate 67 to 74, blood pressure 164/103, 143/81, 150/95, 154/92, 166/99, 189/103, 216/104, yesterday 117/99, 158/79, 169/92, respirations is 18 to 20, O2 saturation is 95% to 98%. HEENT: Head examination normocephalic, atraumatic. Examination shows pinkish pale conjunctivae, anicteric sclerae, no oropharyngeal lesion, no neck rigidity. CHEST: Examination shows kyphosis. LUNG: Examination shows no rales, crackles, or wheezing. CARDIOVASCULAR: S1 and S2, regular rhythm. Questionable soft systolic murmur in left sternal border, left second intercostal space. MUSCULOSKELETAL: Shows body mass index of 32.4. Gait examination not tested. ABDOMEN: Soft. Positive bowel sounds. GENITALIA: Male. RECTAL: Examination is deferred. EXTREMITIES: Shows no petechia. No calf tenderness. No Homans' sign. NEUROLOGIC: The patient is alert, awake, and oriented x3. He is able to move upper and lower extremities without assistance. DIAGNOSTIC DATA: On 03/07/2017, WBC 7.3, hemoglobin and hematocrit 15.1 and 44.0, platelet 213. Sodium 141, potassium 3.5, chloride 105, CO2 29, anion gap 11, BUN 19, creatinine 0.9, GFR greater than 60, glucose 126, calcium 9.4, magnesium 2.0. LFTs are normal. Troponin is negative. BNP 283. Vitamin B60-pbogvww 26. TSH 3.81, T4 8.1. PSA is 1.1, which is normal. Cholesterol is 115, LDL 79, HDL 29. Urinalysis; urine protein 30 and trace ketone. Chest x-ray PA and lateral was noted, negative for CHF and no active disease. CT head was noted, which was negative. EKG was noted, sinus rhythm. Left axis deviation. T-wave inversion, I, aVL in V5 and V6. EKG shows T-wave inversion, I, aVL. FINAL IMPRESSION AND PLAN & DISCHARGE DIAGNOSES: 1. Chest pain. 2. Questionable angina. 3. Uncontrolled accelerated hypertension with symptoms of headache. 4. Obesity with elevated body mass index. 5. Hypokalemia. 6. Type 2 diabetes mellitus with hyperglycemia. 7. History of hypovitaminosis D. 8. Decreased high density lipoprotein. 9. Ketonuria. 10. Dyslipidemia. 11. History of angioplasty and stent placement. 12. History of coronary artery disease. 13. History of hypertension. 14. History of tonsillectomy. 15. Left Ventricular Hypertrophy 16. LVEF 51% 17. Borderline LVEF and left ventricular systolic function. The patient's last cardiac catheterization for 03/2015 shows the patient has a cardiac catheterization with intimal irregularities of the LAD with 50% to 60% ostial stenosis of the first diagonal and intimal irregularities of the left circumflex with left ventricular ejection fraction of 60%. The patient was recommended medical therapy, not angioplasty. The patient's past medical history is also significant for rectal polyp status post colonoscopy in 01/2017. History of hyperplastic rectal polyp. PLAN: At this time, the patient has been ordered repeat labs. The patient is awaiting Cardiology evaluation. CURRENT DISCHARGE MEDICATIONS: The patient is on; 1. Hydralazine 10 mg p.o. q. 6 h. p.r.n. for systolic blood pressure greater than 170 and diastolic greater than 100. 2. The patient is on Coreg 3.125 mg twice a day. 3. Cozaar 100 mg daily. 4. Drisdol 50,000 weekly. 5. Ecotrin 81 mg daily. 6. Fioricet one tablet q. 6 h. p.r.n. 7. Humulin low-dose sliding scale coverage before meals and bedtime. 8. K-Dur 20 mEq p.o. daily. 9. Lasix 40 mg p.o. IV daily. 10. Lipitor 20 mg daily. 11. The patient has added hydrochlorothiazide 12.5 mg daily. 12. The patient's IV Lasix will be stopped. 13. The patient will be started on hydrochlorothiazide 25 mg p.o. daily. The patient's echo with Doppler is pending. The patient's last echo with Doppler was . The patient has been ordered repeat echo with Doppler. At present, the patient will be considered for possible discharge today if the patient is cleared by Cardiology. The patient is updated about his condition, diagnosis, treatment, plan, etc., at length and all questions and concerns answered. PATIENT CLEARED BY CARDIOLOGY FOR DISCHARGE DISCHARGE MEDS PER DISCHARGE MEDICATIONS FOLLOW UP AND WITHIN 1 WEEK. TIME SPENT IN DISCHARGE PROCESS >45 MINUTES. Dictated and electronically signed, not read. Hadley Scott MD MTDD
[2017-03-07 17:53] VITALS: BP 167/114; PULSE 60
--- NOTE | 2017-03-07 17:55 | CP.PCM.DIS ---
Provider - Provider Date of Admission: 03/05/17 17:53 Attending physician: Hadley Scott MD Primary care physician: Jennifer Darby MD Consults: Cardiology-Dr. Shaji Simon Time Spent in preparation of Discharge (in minutes): 45 Diagnosis - Discharge Diagnosis (1) Chest pain Status: Acute (2) Hypertension Status: Acute Hospital Course - Lab Results Lab Results: Most Recent Lab Values WBC 7.3 10^3/ul (4.5-11.0) 03/07/17 05:30 RBC 4.95 10^6/uL (3.5-6.1) 03/07/17 05:30 Hgb 15.1 g/dL (14.0-18.0) 03/07/17 05:30 Hct 44.0 % (42.0-52.0) 03/07/17 05:30 MCV 88.9 fl (80.0-105.0) 03/07/17 05:30 MCH 30.5 pg (25.0-35.0) 03/07/17 05:30 MCHC 34.3 g/dl (31.0-37.0) 03/07/17 05:30 RDW 13.3 % (11.5-14.5) 03/07/17 05:30 Plt Count 213 10^3/uL (120.0-450.0) 03/07/17 05:30 MPV 12.0 fl (7.0-11.0) H 03/07/17 05:30 Gran % 51.7 % (50.0-68.0) 03/07/17 05:30 Lymph % (Auto) 31.9 % (22.0-35.0) 03/07/17 05:30 Grant % (Auto) 9.2 % (1.0-6.0) H 03/07/17 05:30 Eos % (Auto) 6.0 % (1.5-5.0) H 03/07/17 05:30 Baso % (Auto) 1.2 % (0.0-3.0) 03/07/17 05:30 Gran # 3.76 (1.4-6.5) 03/07/17 05:30 Lymph # 2.3 (1.2-3.4) 03/07/17 05:30 Grant # 0.7 (0.1-0.6) H 03/07/17 05:30 Eos # 0.4 (0.0-0.7) 03/07/17 05:30 Baso # 0.09 K/mm3 (0.0-2.0) 03/07/17 05:30 PT 10.9 SECONDS (9.4-12.5) 03/05/17 16:25 INR 1.00 (0.93-1.08) 03/05/17 16:25 APTT 30.2 Seconds (25.1-36.5) 03/05/17 16:25 D-Dimer, Quantitative 210 ng/mL (0-243) 03/07/17 11:30 Sodium 141 mmol/L (132-148) 03/07/17 05:30 Potassium 3.5 mmol/L (3.6-5.0) L 03/07/17 05:30 Chloride 105 mmol/L (98-107) 03/07/17 05:30 Carbon Dioxide 29 mmol/L (21-33) 03/07/17 05:30 Anion Gap 11 (10-20) 03/07/17 05:30 BUN 19 mg/dL (7-21) 03/07/17 05:30 Creatinine 0.9 mg/dl (0.8-1.5) 03/07/17 05:30 Est GFR ( Amer) > 60 03/07/17 05:30 Est GFR (Non-Af Amer) > 60 03/07/17 05:30 POC Glucose (mg/dL) 151 mg/dL (65-110) H 03/07/17 11:40 Random Glucose 126 mg/dL (70-110) H 03/07/17 05:30 Hemoglobin A1c 6.8 % (4.2-6.5) H 03/06/17 13:00 Calcium 9.4 mg/dL (8.4-10.5) 03/07/17 05:30 Magnesium 2.0 mg/dL (1.7-2.2) 03/07/17 05:30 Total Bilirubin 0.8 mg/dL (0.2-1.3) 03/07/17 05:30 Direct Bilirubin 0.5 mg/dL (0.0-0.4) H 03/07/17 05:30 AST 23 U/L (17-59) 03/07/17 05:30 ALT 35 U/L (7-56) 03/07/17 05:30 Alkaline Phosphatase 64 U/L (38-126) 03/07/17 05:30 Lactate Dehydrogenase 315 U/L (333-699) L 03/05/17 19:30 Total Creatine Kinase 54 U/L (35-230) 03/05/17 19:30 Troponin I < 0.01 ng/mL 03/06/17 13:50 NT-Pro-B Natriuret Pep 283 pg/mL (0-450) 03/06/17 13:00 Total Protein 7.6 g/dL (5.8-8.3) 03/07/17 05:30 Albumin 4.0 g/dL (3.0-4.8) 03/07/17 05:30 Globulin 3.5 gm/dL 03/07/17 05:30 Albumin/Globulin Ratio 1.1 (1.1-1.8) 03/07/17 05:30 Triglycerides 159 mg/dL (35-160) 03/06/17 13:00 Cholesterol 151 mg/dL (130-200) 03/06/17 13:00 LDL Cholesterol Direct 79 mg/dL (0-129) 03/06/17 13:00 HDL Cholesterol 29 mg/dL (29-60) 03/06/17 13:00 Prostate Specific Ag 1.1 ng/mL (0.00-2.5) 03/06/17 13:00 25-OH Vitamin D Total 25.8 NG/ML (30.0-100.0) L 03/06/17 13:00 Free T4 1.27 ng/dL (0.78-2.19) 03/06/17 13:00 Thyroxine (T4) 8.1 ug/dL (5.5-11.0) 03/06/17 13:00 TSH 3rd Generation 3.81 mIU/mL (0.46-4.68) 03/06/17 13:00 Urine Color Yellow (YELLOW) 03/05/17 15:37 Urine Appearance Clear (CLEAR) 03/05/17 15:37 Urine pH 6.0 (4.7-8.0) 03/05/17 15:37 Ur Specific Milam 1.025 (1.005-1.035) 03/05/17 15:37 Urine Protein 30 mg/dL (<30 mg/dL) H 03/05/17 15:37 Urine Glucose (UA) Negative mg/dL (NEGATIVE) 03/05/17 15:37 Urine Ketones Trace mg/dL (NEGATIVE) H 03/05/17 15:37 Urine Blood Negative (NEGATIVE) 03/05/17 15:37 Urine Nitrate Negative (NEGATIVE) 03/05/17 15:37 Urine Bilirubin Negative (NEGATIVE) 03/05/17 15:37 Urine Urobilinogen 0.2 E.U./dL (<1 E.U./dL) 03/05/17 15:37 Ur Leukocyte Esterase Negative Erinn/uL (NEGATIVE) 03/05/17 15:37 Urine RBC 0 - 2 /hpf (0-2) 03/05/17 15:37 Urine WBC 0 - 2 /hpf (0-6) 03/05/17 15:37 Ur Epithelial Cells 0 - 2 /hpf (0-5) 03/05/17 15:37 Amorphous Sediment Log Getter 03/05/17 15:37 - Hospital Course Hospital Course: 57 year old male with history of hypertension and diabetes presents to the Emergency Room with hypertension urgency with chest pain. Pt purchased a new BP machine and after subsequent readings, the BP elevated to 200/100. He felt chest pain, 4-5/10, dull in mid subxyphoid area lasting 2-3 seconds. Then the pain shifted to Right lower chest. Denies dizziness/diaphoriesis/N/V/radiation. He has atypical chest pain: trops neg x 3, no change in EKG, telemetry showing sinus rhythm, no wall motion changes in echocardiogram. LVEF is at 51%, aortic root is mildly enlarged. To achieve better BP control, coreg was added, cozaar was doubled to 100, continue hydrochlorothiazide. His BP improves to 170s. Dash diet, low salt diet was advised. Discharge Exam - Head Exam Head Exam: ATRAUMATIC, NORMAL INSPECTION, NORMOCEPHALIC - Eye Exam Eye Exam: EOMI, Normal appearance, PERRL. absent: Scleral icterus Pupil Exam: NORMAL ACCOMODATION - ENT Exam ENT Exam: Mucous Membranes Moist - Neck Exam Additional comments: supple - Respiratory Exam Respiratory Exam: Clear to PA & Lateral, NORMAL BREATHING PATTERN, UNREMARKABLE. absent: Rales, Rhonchi, Wheezes, Respiratory Distress - Cardiovascular Exam Cardiovascular Exam: REGULAR RHYTHM, +S1, +S2 - GI/Abdominal Exam GI & Abdominal Exam: Normal Bowel Sounds. absent: Distended, Firm, Guarding, Rigid - Extremities Exam Extremities exam: normal capillary refill, pedal pulses present - Neurological Exam Neurological exam: Alert, Oriented x3 - Psychiatric Exam Psychiatric exam: Normal Affect, Normal Mood - Skin Skin Exam: Dry, Warm Discharge Plan - Discharge Medications Prescriptions: Atorvastatin [Lipitor] 20 mg PO DIN #30 tab Carvedilol [Coreg] 3.125 mg PO BID #60 tab Ergocalciferol [Drisdol 50,000 Intl Units Cap] 1 cap PO Q7D #7 cap hydroCHLOROthiazide [Microzide] 12.5 mg PO DAILY #30 cap Potassium Chloride [K-Dur 20 mEq ER Tab] 40 meq PO DAILY #30 tab - Follow Up Plan Condition: FAIR Disposition: HOME/ ROUTINE Patient education suggested?: Yes Instructions: DASH Eating Plan (DC), Chest Pain (DC), Chest Pain (GEN), Hypertension (DC), Hypertension (GEN) Additional Instructions: DISCHARGE ONLY AFTER CLEARED BY DISCHARGE MEDS PER UPDATED AMBULATORY ORDERS AND NEW SCRIPTS FOLLOW UP WITHIN 1 WEEK FOLLOW UP WITHIN 1 WEEK Refer to DASH DIET handout for more details. Referrals: Hadley Scott MD [Staff Provider] - 1 Week (DISCHARGE ONLY AFTER CLEARED BY DISCHARGE MEDS PER UPDATED AMBULATORY ORDERS AND NEW SCRIPTS FOLLOW UP WITHIN 1 WEEK FOLLOW UP WITHIN 1 WEEK ) Jennifer Darby MD [Primary Care Provider] - Colt Simon MD [Staff Provider] - 1 Week (DISCHARGE ONLY AFTER CLEARED BY DISCHARGE MEDS PER UPDATED AMBULATORY ORDERS AND NEW SCRIPTS FOLLOW UP WITHIN 1 WEEK FOLLOW UP WITHIN 1 WEEK )
--- NOTE | 2017-03-08 08:25 | PN ---
CARDIOLOGY FOLLOWUP DATE: 03/07/2017 SUBJECTIVE: The patient is feeling well, is asymptomatic. He is tolerating his medication. PHYSICAL EXAMINATION: VITAL SIGNS: Blood pressure is 164/100. NECK: Negative JVD. LUNGS: Without rales. HEART: S1, S2. EXTREMITIES: Without edema. LABORATORY DATA: Hemoglobin is 15.1. Chemistries are unremarkable. IMPRESSION: 1. Accelerated hypertension. 2. The patient tolerating losartan. 3. Diabetes mellitus. 4. Hypercholesterolemia. Given these findings, the patient's chest pain is now resolved since his blood pressures are under better control. The patient is for discharge today. Follow up instructions have been given to the patient in detail. Colt Simon MD
== END 2017-03-07 20:07 | disposition home or self-care (01) ==
LOC: ED 14:43 → ERH 17:53 → 2RSO 19:57
PROVIDERS: ADMIT Internal Medicine; ATTEND Internal Medicine
DX: E11.65 Type 2 diabetes mellitus with hyperglycemia (principal); E66.9 Obesity, unspecified; E78.00 Pure hypercholesterolemia, unspecified; E78.5 Hyperlipidemia, unspecified; E87.6 Hypokalemia; I11.9 Hypertensive heart disease without heart failure; I25.10 Atherosclerotic heart disease of native coronary artery without angina pectoris; I51.7 Cardiomegaly; Z79.82 Long term (current) use of aspirin; Z79.899 Other long term (current) drug therapy
CPT/HCPCS: 36415; 70450; 71010; 71020; 80048; 80053; 80061; 80076; 81001; 82306; 82550; 82948; 83036; 83615; 83735; 83880; 84153; 84439; 84443; 84484; 85025; 85378; 85610; 85730; 93005; 93306; 99285; G0378; J0360; J1940; J3480

== ENCOUNTER 2018-05-24 14:29 | Emergency (ER) | payer BC ==
[2018-05-24 14:51] VITALS: BMI 33.9
[2018-05-24 15:00] VITALS: RESP 18; TEMP 98.3
--- NOTE | 2018-05-24 15:20 | ED PDOC ---
Arrival/HPI - General Chief Complaint: High Blood Pressure Time Seen by Provider: 05/24/18 15:03 Historian: Patient - History of Present Illness Narrative History of Present Illness (Text): 05/24/18 15:19 58 year old male, whose past medical history includes diabetes and hypertension, who presents to the emergency department for further evaluation of his headache, since yesterday. Patient states his headache starts at the back of his head and radiates all the way to his forehead, he also has pain to the sides of his neck with rotation of his head. At worse the pain was 9.5/10 and he is now currently feeling 2/10. He reports he saw his PMD earlier today, who administered pain medication, which helped reduced his pain. PMD suggested coming into the emergency department for further evaluation since patient blood pressure was also elevated. He denies visual changes, fevers, chills, dizziness, chest pain, shortness of breath, dyspnea on exertion, cough, abdominal pain, nausea, vomiting, diarrhea, back pain, neck stiffness, weaknessor any other complaint. PMD: Dr. Scott Time/Duration: 24 hours Symptom Onset: Gradual Symptom Course: Unchanged Activities at Onset: Light Context: Home Past Medical History - Provider Review Nursing Documentation Reviewed: Yes - Infectious Disease Hx of Infectious Diseases: None - Cardiac Hx Cardiac Disorders: Yes Hx Hypertension: Yes - Pulmonary Hx Respiratory Disorders: No - Neurological Hx Neurological Disorder: No - HEENT Hx HEENT Disorder: No - Renal Hx Renal Disorder: No - Endocrine/Metabolic Hx Endocrine Disorders: Yes Hx Diabetes Mellitus Type 2: Yes - Hematological/Oncological Hx Blood Disorders: No - Integumentary Hx Dermatological Disorder: No - Musculoskeletal/Rheumatological Hx Musculoskeletal Disorders: Yes Hx Fractures: Yes (lumbar fx) - Gastrointestinal Hx Gastrointestinal Disorders: No - Genitourinary/Gynecological Hx Genitourinary Disorders: No - Psychiatric Hx Psychophysiologic Disorder: No Hx Substance Use: No - Surgical History Hx Cardiac Catheterization: Yes Hx Tonsillectomy: Yes - Anesthesia Hx Anesthesia: Yes Hx Anesthesia Reactions: No - Suicidal Assessment Feels Threatened In Home Enviroment: No Family/Social History - Physician Review Nursing Documentation Reviewed: Yes Family/Social History: No Known Family HX Smoking Status: Never Smoked Hx Alcohol Use: No Hx Substance Use: No Allergies/Home Meds Allergies/Adverse Reactions: Allergies No Known Allergies Allergy (Verified 03/05/17 21:33) Home Medications: Home Meds Medication Instructions Recorded Confirmed RX: Aspirin [Lo-Dose Aspirin EC] 81 mg PO DAILY 01/12/17 03/05/17 RX: MetFORMIN [glucoPHAGE] 1,000 mg PO BID 01/12/17 05/24/18 Diclofenac Sodium 1 appl TOP QID 05/24/18 05/24/18 Finasteride [Proscar] 1 tab PO DAILY 05/24/18 05/24/18 RX: Magnesium Oxide [Mag-Ox] 1 tab PO DAILY 05/24/18 05/24/18 RX: Olmesartan/Amlodipin/Hcthiazid 1 tab PO DAILY 05/24/18 05/24/18 [[id number] 40-10-25Mg] Tamsulosin [Flomax] 1 cap PO DAILY 05/24/18 05/24/18 Review of Systems - Physician Review All systems were reviewed & negative as marked: Yes - Review of Systems Constitutional: absent: Fevers Respiratory: absent: SOB, Cough Cardiovascular: absent: Chest Pain Gastrointestinal: absent: Abdominal Pain, Diarrhea, Nausea, Vomiting Musculoskeletal: absent: Back Pain, Neck Pain Neurological: Headache. absent: Dizziness Physical Exam Vital Signs Reviewed: Yes Vital Signs Temp Pulse Resp BP Pulse Ox 05/24/18 15:01 178/106 H 05/24/18 14:59 98.3 F 73 18 185/107 H 95 Temperature: Afebrile Blood Pressure: Hypertensive Pulse: Regular Respiratory Rate: Normal Appearance: Positive for: Well-Appearing, Non-Toxic, Comfortable Pain Distress: None Mental Status: Positive for: Alert and Oriented X 3 - Systems Exam Head: Present: Atraumatic, Normocephalic Pupils: Present: PERRL Extroacular Muscles: Present: EOMI Conjunctiva: Present: Normal Mouth: Present: Moist Mucous Membranes Neck: Present: Normal Range of Motion. No: MIDLINE TENDERNESS Respiratory/Chest: Present: Clear to Auscultation, Good Air Exchange. No: Respiratory Distress, Accessory Muscle Use Cardiovascular: Present: Regular Rate and Rhythm, Normal S1, S2. No: Murmurs Abdomen: No: Tenderness, Distention, Peritoneal Signs Back: Present: Normal Inspection Upper Extremity: Present: Normal Inspection. No: Cyanosis, Edema Lower Extremity: Present: Normal Inspection. No: Edema Neurological: Present: GCS=15, CN II-XII Intact, Speech Normal, Motor Func Grossly Intact, Normal Sensory Function, Gait Normal Skin: Present: Warm, Dry, Normal Color. No: Rashes Psychiatric: Present: Alert, Oriented x 3, Normal Insight, Normal Concentration Medical Decision Making ED Course and Treatment: 05/24/18 15:20 Impression: 58 year old male who presents to the emergency department complaining of headache. Plan: -- Head CT w/o contrast -- Labs -- Urinalysis -- Reassess and disposition Prior Visits: Notes and results from previous visits were reviewed. Progress Notes: 05/24/18 17:15 I spoke w/Dr. Scott who was in the Emergency department. Dr. Scott said he sent patient to the Emergency department for CT, and had given patient Toradol in his office. Dr. Scott says pt has not been taking one of his blood pressure pills, noting he does not know how long it has been. Dr. Scott said he gave the patient refills for all of his medications and the patient has an appointment with him either on Tuesday or Tuesday this. Patient initially said his pain was 2/10 and then later said 5/10 after Tyler Sanders saw him. Blood pressure was 190/108, I ordered Hydralazine and repeat blood pressure is 158/101. Patient noted he is feeling much better. Patient has all prescriptions and has been instructed to take all as prescribed. Patient will be discharged. He verbalized understanding of his d/c instructions. - RAD Interpretation Narrative RAD Interpretations (Text): CT of head reviewed by radiologist, shows: Dictated By: Brandie Nguyễn MD Dictated Date/Time: 05/24/18 15:59 Impression: No evidence of acute intracranial hemorrhage intracranial collection mass effect or midline shift. Bricklayer'S Assistant: Radiologist - EKG Interpretation EKG Interpretation (Text): 05/24/18 15:33 EKG reviewed, shows: Nml sinus 67 bpm, with left axs deviation, t wave change in the lateral leads, and artifact. Similar to EKG performed on 08/18/17. Interpreted by ED Physician: Yes Type: 12 lead EKG - Scribe Statement The provider has reviewed the documentation as recorded by the Cabreraibchely Rubio Provider Scribe Attestation: All medical record entries made by the Scribe were at my direction and personally dictated by me. I have reviewed the chart and agree that the record accurately reflects my personal performance of the history, physical exam, medical decision making, and the department course for this patient. I have also personally directed, reviewed, and agree with the discharge instructions and disposition. Disposition/Present on Arrival - Present on Arrival Any Indicators Present on Arrival: No History of DVT/PE: No History of Uncontrolled Diabetes: No Urinary Catheter: No History of Decub. Ulcer: No History Surgical Site Infection Following: None - Disposition Have Diagnosis and Disposition been Completed?: Yes Diagnosis: Headache, Hypertension Disposition: HOME/ ROUTINE Disposition Time: 18:13 Patient Plan: Discharge Condition: IMPROVED Discharge Instructions (ExitCare): High Blood Pressure (DC), Headache, Adult (DC) Additional Instructions: ROBBIE WRIGHT, thank you for letting us take care of you today. Your provider was Halina Sullivan MD and you were treated for high blood pressure/ diabetic ( ). The emergency medical care you received today was directed at your acute symptoms. If you were prescribed any medication, please fill it and take as directed. It may take several days for your symptoms to resolve. Return to the Emergency Department if your symptoms worsen, do not improve, or if you have any other problems. Please follow up with Dr. Scott as previously scheduled. Bring any paperwork you were given at discharge with you along with any medications you are taking to your follow up visit. Our treatment cannot replace ongoing medical care by a [facility] care provider outside of the emergency department. Thank you for allowing the [facility] team to be part of your care today. Forms: [employer] (Czech)
--- NOTE | 2018-05-24 16:03 | CT ---
Date of service: 05/24/2018 PROCEDURE: CT HEAD WITHOUT CONTRAST. HISTORY: headache/htn COMPARISON: None available. TECHNIQUE: Axial computed tomography images were obtained through the head/brain without intravenous contrast. Radiation dose: Total exam DLP = 951.3 mGy-cm. This CT exam was performed using one or more of the following dose reduction techniques: Automated exposure control, adjustment of the mA and/or kV according to patient size, and/or use of iterative reconstruction technique. FINDINGS: HEMORRHAGE: No intracranial hemorrhage. BRAIN: No mass effect or edema. No atrophy or chronic microvascular ischemic changes. VENTRICLES: Unremarkable. No hydrocephalus. CALVARIUM: Unremarkable. PARANASAL SINUSES: Unremarkable as visualized. No significant inflammatory changes. MASTOID AIR CELLS: Unremarkable as visualized. No inflammatory changes. OTHER FINDINGS: None. IMPRESSION: No evidence of acute intracranial hemorrhage intracranial collection mass effect or midline shift.
[2018-05-24 17:02] LABS: BASO # 0.1 K/mm3 (0.0-2.0); EOS # 0.5 (0.0-0.7); EOS % 4.9 % (1.5-5.0); HEMOGLOBIN 14.7 g/dL (14.0-18.0); LYMPH % 30.8 % (22.0-35.0); MEAN CELL VOLUME 88.2 fl (80.0-105.0); MEAN CORPUSCULAR HEMOGLOBIN 29.8 pg (25.0-35.0); MEAN CORPUSCULAR HGB CONC 33.8 g/dl (31.0-37.0); MEAN PLATELET VOLUME 11.6 fl (7.0-11.0); MONO # 0.7 (0.1-0.6); MONO % 6.8 % (1.0-6.0); RBC 4.93 10^6/uL (3.5-6.1); RED CELL DISTRIBUTION WIDTH 13.3 % (11.5-14.5); WHITE BLOOD COUNT 9.8 10^3/uL (4.5-11.0)
[2018-05-24] MEDS ORDERED: Morphine 2 mg/ml ISec IVP STA (17:13)
[2018-05-24 17:14] LABS: ALB/GLOB RATIO 1.2 (1.1-1.8); ALBUMIN 4.3 g/dL (3.0-4.8); ALT/SGPT 24 U/L (7-56); AST/SGOT 23 U/L (17-59); BLOOD UREA NITROGEN 19 mg/dL (7-21); CALCIUM 9.4 mg/dL (8.4-10.5); GFR NON-AFRICAN AMERICAN > 60
[2018-05-24 18:04] VITALS: BP 158/101; PULSE 67; O2SAT 96
--- NOTE | 2018-05-25 08:14 | CARD ---
APPROVED REPORT Date of service: 05/24/2018 EKG Measurement Heart [id number] <Conclusion> Normal sinus rhythm Left anterior fascicular block Cannot rule out Anterior infarct, age undetermined T wave abnormality, consider inferolateral ischemia Abnormal ECG
== END 2018-05-24 18:57 | disposition home or self-care (01) ==
LOC: ED 14:29
DX: R51 Headache (principal); I10 Essential (primary) hypertension; E11.9 Type 2 diabetes mellitus without complications
CPT/HCPCS: 70450; 80053; 85025; 93005; 96374; 96375; 99284; J0360; J2270; J2405

== ENCOUNTER 2018-05-31 08:27 | Outpatient (CLI) | payer BC | END 2018-05-31 08:28 | disposition home or self-care (01) | LOC: RAD 08:27 ==